=== PATIENT | male | born 1995 | race Caucasian/White ===

== ENCOUNTER 2021-05-09 16:43 | Emergency (ER) | payer OTHER ==
[~2021-05-09] VITALS: Ht 172.7 cm; Wt 68.0 kg
--- NOTE | ~2021-05-09 | EMS ---
[place] [address] EMS Patient Care Report Name: KIM DUNLAP Room #: DEP BALJINDER Morgan#: [id number] Admission: 05/09/21 Attend Phys: Discharge: 05/09/21 Date of : [birth year] Report #: [id number] THIS REPORT FOR: //name// Report Transmitted: 05/12/2021 09:31 EMS Care Summary [place], [place]/[facility] Incident [phone] @ 05/09/2021 16:14 Incident Location [address] [place] [address] Patient KIM DUNLAP Male, 26 Years 1995 Patient Address [address] [place] [address] Patient History None Reported, Patient Allergies No known allergies, Patient Medications None Reported, Chief Complaint OVERDOSE Disposition Transported No Lights/Munger Dispatch Reason Convulsions/Seizure Transported To [facility] Narrative ARRIVED TO FIND PT SLUMPED OVER IN A CHAIR. PT FOUND TO BE BREATHING SHALLOWLY WITH A STRONG RADIAL PULSE. PT MOVED TO FLOOR, CALLED TO [facility]IFT ASSIST EMERGENCY. PT PLACED ON O2. ALS ASSESSMENT VITALS OBTAINED. PT SUDDENLY RETURNS TO CONCIOUSNESS. PT ABLE TO STEPS OUTSIDE TO COT, SECURED WITH STRAP X2, [place] [address] EMS Patient Care Report Name: KIM DUNLAP Room #: DEP ER Cathy#: [id number] Admission: 05/09/21 Attend Phys: Discharge: 05/09/21 Date of : [birth year] Report #: [id number] WITHOUT INCIDENT. PT ADMITS TO USING METH AND TAKING SOME PERCOSET. ENROUTE, PT REMAINS A&O X4, VITALS REMAIN STABLE. ARRIVED. PT TAKEN INSIDE ON COT TO ER 1. PT STEPS TO BED. REPORT GIVEN TO NURSE, PT CARE TRANSFERRED. Initial Vitals @16:32P: 109,R: 16,BP: 174/101,Pain: 0/10,GCS: 15,CO: 2,SpO2: 99,Revised Trauma: 12, @16:25P: 84,R: 10,BP: 110/66,Pain: 0/10,GCS: 3,SpO2: 63,Revised Trauma: 8, Assessments @16:23MENTAL:Unresponsive,SKIN:Diaphoresis,Hot,HEENT:Eyes: Right Pupil: 2-mm,Eyes: Left Pupil: 2-mm,Eyes: Right: Constricted,Eyes: Left: Constricted,Head/Face: No Abnormalities,Neck/Airway: No Abnormalities,LUNG SOUNDS:General: No Abnormalities,Left Upper: No Abnormalities,Right Upper: No Abnormalities,Left Lower: No Abnormalities,Right Lower: No Abnormalities,ABDOMEN:General: No Abnormalities,Left Upper: No Abnormalities,Right Upper: No Abnormalities,Left Lower: No Abnormalities,Right Lower: No Abnormalities,PELVIS//GI:No Abnormalities,EXTREMITIES:Left Arm: No Abnormalities,Right Arm: No Abnormalities,Left Leg: No Abnormalities,Right Leg: No Abnormalities,PULSE:Radial: 2+ Normal,NEURO:No Abnormalities,@16:32MENTAL:Event Oriented,Time Oriented,Person Oriented,Place Oriented,SKIN:HEENT:LUNG SOUNDS:ABDOMEN:PELVIS//GI:EXTREMITIES:PULSE:NEURO: Impression Overdose - Amphetamine Procedures @16:23ALS AssessmentResponse: UnchangedSucceeded@16:25Oxygen FlowRate: 15 Device: Non Re-breather Mask (NRB) Response: ImprovedSucceeded Timeline 16:12,Call Received 16:12,Dispatch Notified 16:14,Dispatched 16:15,En Route 16:20,On Scene 16:23,At Patient 16:23,ALS Assessment,Response: UnchangedSucceeded, 16:25,Oxygen FlowRate: 15 Device: Non Re-breather Mask (NRB) Response: ImprovedSucceeded, 16:25,BP: 110/66 M,PULSE: 84,RR: 10 R,SPO2: 63 Ox,ETCO2: ,BG: ,PAIN: 0,GCS: 3, 16:32,Depart Scene 16:32,BP: 174/101 M,PULSE: 109,RR: 16 R,SPO2: 99 Ox,ETCO2: ,BG: ,PAIN: 0,GCS: [address] [address] EMS Patient Care Report Name: KIM DUNLAP Room #: DEP Cathy#: [id number] Admission: 05/09/21 Attend Phys: Discharge: 05/09/21 Date of : [birth year] Report #: [id number] 15, 16:40,At Destination 16:50,Call Closed Disclaimer [email or web address] Copyright 2020 [employer] This EMS Care Summary contains data elements from the applicable legal record (which may be displayed differently). It is designed to provide pertinent information for the following purposes: continuity of care, clinical quality, and state data reporting. The complete legal record is available to ED staff and administrators of the receiving hospital in [employer]'s Patient Tracker. All data is provided "as is."
[2021-05-09 17:10] LABS: HEMATOCRIT 44.7 % (42.0-52.0); HEMOGLOBIN 14.7 gm/dL (14.0-18.0); MCH 29.1 pg (26.0-34.0); MCHC 32.8 g/dL (28.0-37.0); MCV 88.6 fL (80.0-100.0); RBC 5.04 mil/uL (4.50-6.00); RDW 14.3 % (10.5-14.5); WBC 10.4 thou/uL (4.0-11.0)
[2021-05-09 17:18] LABS: URINE BILIRUBIN NEGATIVE (Negative); URINE BLOOD 1+ (Negative); URINE CLARITY CLEAR; URINE COLOR YELLOW; URINE GLUCOSE-RANDOM* NEGATIVE (Negative); URINE KETONES TRACE (Negative); URINE LEUKOCYTES-REFLEX NEGATIVE (Negative); URINE NITRITE-REFLEX NEGATIVE (Negative); URINE PROTEIN (DIPSTICK) 1+ (Negative); URINE SPECIFIC GRAVITY >= 1.030 (1.005-1.035)
[2021-05-09 17:19] LABS: ANION GAP 5 mmol/L (7-16); BUN 11 mg/dL (7-18); CALCIUM 9.2 mg/dL (8.5-10.1); CHLORIDE 98 mmol/L (98-107); CO2 31 mmol/L (21-32); CREATININE 1.2 mg/dL (0.7-1.3); GLUCOSE 163 mg/dL (74-106); POTASSIUM 3.1 mmol/L (3.5-5.1); SODIUM 134 mmol/L (136-145)
[2021-05-09 17:26] LABS: ALBUMIN 4.3 g/dL (3.4-5.0); SALICYLATE < 2.8 mg/dL (2.8-20.0); SGOT 18 U/L (15-37); SGPT 20 U/L (16-63); TOTAL BILIRUBIN 0.6 mg/dL (0.2-1.0); TOTAL PROTEIN 8.1 g/dL (6.4-8.2)
[2021-05-09 17:33] LABS: HYALINE CASTS 0-3 Few /LPF (None Seen); MUCUS >6 Heavy strn/LPF (None Seen); SQUAMOUS 0-3 Few /LPF (0-3)
[2021-05-09 17:35] LABS: BACTERIA-REFLEX 1-9 Few /HPF (None Seen); CRYSTALS None Seen /LPF (None Seen); URINE RBC 1-2 Rare /HPF (NONE SEEN); URINE WBC-REFLEX 6-15 Few /HPF (0-5)
[2021-05-09 17:37] LABS: AMP/METHAMP POSITIVE (Negative); BARBITURATES Negative (Negative); BENZODIAZEPINES POSITIVE (Negative); COCAINE Negative (Negative); METHADONE Negative (Negative); OPIATES Negative (Negative); PCP Negative (Negative)
[2021-05-09] MEDS ORDERED: NARCAN4 MG NARES (18:20)
[2021-05-09 18:38] VITALS: BP 138/92
--- NOTE | 2021-05-12 07:27 | EKG ---
[address] [address] ELECTROCARDIOGRAM REPORT Name: KIM DUNLAP Room #: [facility] Cathy#: [id number] Admission: 05/09/21 Attend Phys: Discharge: 05/09/21 Date of : [birth year] Report #: [id number] [facility] ED Test Date: 2021-05-09 Test Time: 16:48:05 Pat Name: KIM DUNLAP Department: Room: Gender: Corporate Strategy Intern: JASPREET : 1995 Requested By: Reggie Farooq Order Number: [id number] MD: Gumaro Monsivais Measurements Intervals [place] Rate: 115 P: 75 IN: 138 QRS: 31 QRSD: 84 T: 35 QT: 317 QTc: 439 Interpretive Statements Sinus tachycardia No previous ECG available for comparison Electronically Signed On 05-12-2021 7:27:25 CDT by Gumaro Monsivais [email or web address] <ELECTRONICALLY SIGNED> By: Gumaro Monsivais MD, [facility] 05/12/21 0727 [id number] Gumaro Monsivais MD, FACC /EPI
== END 2021-05-09 19:33 | disposition home or self-care (01) ==
LOC: ER 16:43
PROVIDERS: Physician Assistant
DX: F15.10 Other stimulant abuse, uncomplicated (principal); R41.82 Altered mental status, unspecified